=== PATIENT | male | born 1995 | race Caucasian/White ===

== ENCOUNTER 2017-09-21 02:05 | Emergency (ER) | payer SELFPAY ==
[2017-09-21 02:42] LABS: URINE MICROSCOPIC INDICATED? YES; URINE SOURCE RANDOM
[2017-09-21 02:45] LABS: URINE BILIRUBIN NEGATIVE (NEGATIVE); URINE BLOOD NEGATIVE (NEGATIVE); URINE GLUCOSE (UA) NEGATIVE (NEGATIVE); URINE KETONE NEGATIVE (NEGATIVE); URINE LEUKOCYTE ESTERASE NEGATIVE (NEGATIVE); URINE NITRATE NEGATIVE (NEGATIVE); URINE PROTEIN NEGATIVE (NEGATIVE); URINE UROBILINOGEN 0.2 E.U./dL (0.2 - 1.0)
--- NOTE | 2017-09-21 02:51 | ED Physician Chart ---
ED Chief Complaint/HPI - Patient Information Date Seen:: 09/21/17 Time Seen:: 02:35 Chief Complaint:: chest pain History of Present Illness:: About 35 hours ago patient developed mild non-pleuritic right superior chest pain. Patient's had rhinorrhea but no cough since yesterday afternoon. No chills or fever. Patient smokes marijuana but not cigarettes. He last smoked marijuana at 2200 last night. Allergies:: Allergies Allergy/AdvReac Type Severity Reaction Status Date / Time No Known Allergies Allergy Verified 09/21/17 02:23 Vitals:: Vital Signs - 8 hr 09/21/17 02:05 Temp 97.5 F HR 130 RR 16 BP 107/71 O2 Sat % 99 Historian:: Patient Review:: Nurse's Note Reviewed ED Review of Systems - Review of Systems General/Constitutional: No fever, No chills Skin: No skin lesions Head: No headache Eyes: No loss of vision ENT: No earache Neck: No neck pain Cardio Vascular: Chest pain Pulmonary: No SOB GI: No nausea, No vomiting, No diarrhea G/U: No dysuria Musculoskeletal: No bone or joint pain Endocrine: No polyuria Psychiatric: No prior psych history, No depression, No anxiety Hematopoietic: No bruising, No lymphadenopathy Allergic/Immuno: No urticaria, No angioedema Neurological: No syncope, No focal symptoms, No weakness ED Past Medical History - Past Medical History Past Medical History: No significant medical hx Family History: Cancer, Other (asthma) Social History: Non Smoker, No Alcohol Employment:: See history Surgical History: None Psychiatricy History: None Medication: None Family Medical History - Family Member Mother Ethnicity: Living Status: Still Living Other Medical History: none father History Unknown: Yes Other Medical History: asthma ED Physical Exam - Physical Examination General/Constitutional: Well-developed, well-nourished, Alert, No distress Head: Atraumatic Eyes: Lids, conjuctiva normal, PERRL Skin: Nl inspection, No rash, No skin lesions, No ecchymosis ENMT: External ears, nose nl, TM canals nl, Nasal exam nl, Lips, teeth, gums nl Neck: No nuchal rigidity Respiratory: Nl effort/Exclusion, Clear to Auscultation Other Respiratory comments:: This sounds slightly decreased on the right side Cardio Vascular: RRR GI: No tenderness/rebounding/guarding : No CVA tenderness Extremities: Normal digits & nails Neuro/Psych: No focal deficits Misc: Normal back ED Labs/Radiology/EKG Results - Radiology Results Results: Chest x-ray normal - EKG Interpretations Rate & Rhythm: sinus tachycardia [place]: normal Comments:: By [address] depression and leads II, III, aVF and V5 and V6 ED Assessment - Assessment General Assessment: At 0325 patient's heart rate was 108. Patient's sinus tachycardia most likely due to smoking marijuana. ED Septic Shock - . Is Septic Shock (SBP<90, OR Lactate>4 mmol\L) present?: No - <6hrs of presentation: Vital Signs: Vital Signs - 8 hr /04/02 02:05 Temp 97.5 F HR 130 RR 16 BP 107/71 O2 Sat % 99 ED Reassessment (Disposition) - Reassessment Reassessment Condition:: Improved - Diagnosis Diagnosis:: Atypical chest pain - Aftercare/Follow up Instructions Aftercare/Follow-Up Instructions:: Refer to Discharge Instructions - Patient Disposition Discharge/Transfer:: Home Condition at Disposition:: Stable, Improved
[2017-09-21 02:52] LABS: URINE CLARITY CLEAR (CLEAR); URINE COLOR YELLOW; URINE RBC 0-2 /hpf (0-5); URINE WBC 0-2 /hpf (0-5)
[2017-09-21 02:53] LABS: URINE BACTERIA FEW /hpf (NONE SEEN); URINE EPITHELIAL CELLS RARE /lpf (FEW)
[2017-09-21 03:10] LABS: AMPHETAMINE URINE NEGATIVE (NEGATIVE); BARBITURATES URINE NEGATIVE (NEGATIVE); BENZODIAZEPINES QUAL URINE NEGATIVE (NEGATIVE); CANNABINOID THC POSITIVE (NEGATIVE); COCAINE METABOLITE QUAL URINE NEGATIVE (NEGATIVE); METHADONE URINE NEGATIVE (NEGATIVE); METHAMPHETAMINES QUAL URINE NEGATIVE (NEGATIVE); OPIATES (MORPHINE) QUAL. URINE NEGATIVE (NEGATIVE); PHENCYCLIDINE (PCP) URINE NEGATIVE (NEGATIVE); TRICYCLICS (TCA) QUAL. URINE NEGATIVE (NEGATIVE)
[2017-09-21] MEDS ORDERED: Maalox 30 mL Cup PO ONE (03:14)
--- NOTE | 2017-09-21 07:58 | Diagnostic Imaging Report ---
Chest x-ray single view History: Chest pain Comparison: None The heart size is normal. No focal pulmonary parenchymal processes. No hilar or mediastinal abnormalities. Impression: No acute abnormalities
== END 2017-09-21 03:40 | disposition home or self-care (01) ==
LOC: ER 02:05
DX: R07.89 Other chest pain (principal)
CPT/HCPCS: 71045-TC; 80307; 81001-TC